=== PATIENT | male | born 1975 | race African-American/Black ===

== ENCOUNTER 2016-12-28 23:17 | Emergency (ER) | payer OTHER ==
[~2016-12-28] VITALS: Ht 180.3 cm; Wt 75.0 kg
[~2016-12-28 23:17] MED LIST: FOLI-49 PO; HYDR-762 PO
[2016-12-29 00:13] VITALS: Ht 180.3 cm; Wt 75.0 kg
[2016-12-29] MEDS ORDERED: KETOROLAC 30 MG INJ IM STA (01:32)
--- NOTE | 2016-12-29 02:44 | ERD ---
ER Documentation Chief Complaint Date/Time DATE: 12/29/16 TIME: 02:41 Chief Complaint Back pain x4 days HPI This patient is a 41-year-old male with history of sickle cell anemia presenting to the emergency department for right sided mid back pain ongoing for the past 4 days. The patient is already taking p.o. Dilaudid and states it is not resolving his pain. Patient denies chest pain, loss of bowel or bladder function, shortness of breath, chills, or other symptoms at this time. ROS All systems reviewed and are negative except as per history of present illness. Medications Home Meds Active Scripts Hydrocodone Bit-Acetaminophen* ([place]*) 10-325 Mg Tablet, 1 TAB PO Q6 Y for PAIN , #20 TAB Prov:JIMYOBANIADRIAN Dane 05/11/16 Reported Medications Folic Acid* (Folic Acid*) 1 Mg Tablet, 1 MG PO DAILY, TAB 10/15/15 Allergies Allergies: Coded Allergies: morphine (Verified Allergy, Unknown, 05/11/16) PMhx/Soc History of Surgery: Yes (SPLEENECTOMY) Anesthesia Reaction: No Hx Neurological Disorder: No Hx Respiratory Disorders: No Hx Cardiac Disorders: No Hx Psychiatric Problems: No Hx Miscellaneous Medical Probl: Yes (Sickle cell anemia, VENOUS INSUFFICIENCY ) Hx Alcohol Use: Yes (Social Drinker) Hx Substance Use: No Hx Tobacco Use: Yes Smoking Status: Never smoker FmHx Noncontributory for chief complaint. Physical Exam Vitals Vital Signs Date Time Temp Pulse Resp B/P Pulse Ox O2 Delivery O2 Flow Rate FiO2 12/29/16 00:13 99.7 110 18 110/54 97 Physical Exam Const: The patient is resting comfortably in no acute distress. Head: Atraumatic Eyes: Normal Conjunctiva ENT: Normal External Ears, Nose and Mouth. Neck: Full range of motion..~ No meningismus. Resp: Clear to auscultation bilaterally Cardio: Regular rate and rhythm, no murmurs Abd: Soft, non tender, non distended. Normal bowel sounds Skin: No petechiae or rashes Back: No midline or flank tenderness. There is tenderness to palpation of the right mid paraspinal area. Negative straight leg raise bilaterally. Ext: No cyanosis, or edema Neur: Awake and alert Psych: Normal Mood and Affect Results 24 hrs Current Medications Medications (Trade) Dose Ordered Sig/Rojelio Route PRN Reason Start Time Stop Time Status Last Admin Dose Admin Ketorolac Tromethamine (Toradol) 30 mg ONCE STAT IM 12/29/16 01:32 12/29/16 01:33 DC 12/29/16 01:58 Procedures/MDM 41-year-old male presents secondary to complaints of mid right-sided low back pain. On review of the [facility] system the patient has multiple ED visits locally. As per paperwork I attempted to contact Dr. Marla Tompkins, medical records tech at [facility], who did not answer my call. The patient was treated in the department with IM Toradol exercising proper clinical judgment. The patient was feeling slightly improved on reevaluation. The patient was given no prescriptions due to his records with the [facility] system and already having a prescription for p.o. Dilaudid. It was reported to me by nursing staff that when they went to discharge the patient he had already eloped and had refused to sign his discharge paperwork. I have low suspicion for any significant acute medical condition. Dr. Leobardo Solis, attending ED physician spoke to me about this patient and he agreed with the ED course. Departure Diagnosis: Primary Impression: Back pain Condition: Fair Patient Instructions: Back Pain (Acute Or Chronic) Referrals: [facility] (PCP) [facility] YOU HAVE RECEIVED A MEDICAL SCREENING EXAM AND THE RESULTS INDICATE THAT YOU DO NOT HAVE A CONDITION THAT REQUIRES URGENT TREATMENT IN THE EMERGENCY DEPARTMENT. FURTHER EVALUATION AND TREATMENT OF YOUR CONDITION CAN WAIT UNTIL YOU ARE SEEN IN YOUR DOCTORS OFFICE WITHIN THE NEXT 1-2 DAYS. IT IS YOUR RESPONSIBILITY TO MAKE AN APPOINTMENT FOR FOLOW-UP CARE. IF YOU HAVE A PRIMARY DOCTOR --you should call your primary doctor and schedule an appointment IF YOU DO NOT HAVE A PRIMARY DOCTOR YOU CAN CALL OUR PHYSICIAN REFERRAL HOTLINE AT IF YOU CAN NOT AFFORD TO SEE A PHYSICIAN YOU CAN CHOSE FROM THE FOLLOWING [facility] [address] [place] [facility]. [facility] [address] [place] [facility] [address] [facility] [address] [facility] [address] [facility] [address] [place] Additional Instructions: Follow-up with your primary care physician within 1 week. Return to the emergency department immediately should you have any new or worsening symptoms, uncontrolled fevers, or other unexplained symptoms. Take all medications as directed. ADRIAN GARCIA PA-C Dec 29, 2016 02:44
== END 2016-12-29 02:03 | disposition left against medical advice (07) ==
LOC: FTE 23:17
DX: M54.5 Low back pain (principal); Z87.891 Personal history of nicotine dependence
CPT/HCPCS: 96372; J1885; Z7502